=== PATIENT | female | born 1960 | race Caucasian/White ===

== ENCOUNTER → 2016-12-30 | Outpatient (CLI) | payer BC ==
[~2016-12-30] MED LIST: ANTIVERT/2525 M1 PO; ASPIR 8181 MG PO; GOOD SENSE ALLE10 MG PO; OMEPRAZOLE40 MG PO; OXYBUTYNIN CHLOR5 MG PO; ZOFRAN ODT4 MG SL
[2016-12-30 09:12] LABS: EST GLOM FILT AFRICAN AMERICAN > 60 ml/min
== END ==
LOC: LAB 08:46 → CT 09:00
PROVIDERS: Nurse Practitioner Family
DX: R59.1 Generalized enlarged lymph nodes (principal)

== ENCOUNTER → 2017-01-13 | Outpatient (CLI) | payer BC | LOC: US 13:46 | DX: E04.2 Nontoxic multinodular goiter (principal) ==

== ENCOUNTER → 2017-01-27 | Outpatient (CLI) | payer BC ==
[2017-01-27 13:06] LABS: INTERNATIONAL NORM RATIO 0.9 (2.0-3.5)
== END | disposition home or self-care (01) ==
PROVIDERS: Nurse Practitioner Family
DX: E04.2 Nontoxic multinodular goiter (principal); L04.9 Acute lymphadenitis, unspecified; R79.1 Abnormal coagulation profile

== ENCOUNTER → 2017-04-25 | Outpatient (CLI) | payer BC | END | disposition home or self-care (01) | LOC: RAD 18:44 | DX: S90.31XA Contusion of right foot, initial encounter (principal); M19.071 Primary osteoarthritis, right ankle and foot; M77.31 Calcaneal spur, right foot; X58.XXXA Exposure to other specified factors, initial encounter; Y93.89 Activity, other specified; Y92.89 Other specified places as the place of occurrence of the external cause; Y99.8 Other external cause status ==

== ENCOUNTER 2017-09-23 15:45 | Inpatient (IN) | payer BC ==
[~2017-09-23] VITALS: Ht 162.5 cm; Wt 84.2 kg
[2017-09-23 15:45] VITALS: BP 136/65
[2017-09-23 16:24] LABS: BASO % 0.1 % (0.0-1.0); EOS # 0.1 10*3/uL (0.0-0.4); EOS % 0.7 % (1.0-4.0); HEMOGLOBIN 12.8 g/dl (12.0-16.0); LYMPH # 1.6 10*3/uL (1.3-4.4); LYMPH % 23.7 % (27.0-41.0); MEAN CELL VOLUME 69.8 fl (81.0-99.0); MEAN CORPUSCULAR HGB 22.9 pg (27.0-31.0); MEAN CORPUSCULAR HGB CONC 32.8 g/dl (33.0-37.0); MEAN PLATELET VOLUME 9.5 fl (9.6-12.3); MONO # 0.3 10*3/uL (0.1-1.0); MONO % 4.7 % (3.0-9.0); NEUT # 4.8 10*3/uL (2.3-7.9); NEUT % 70.4 % (47.0-73.0); PLATELET COUNT AUTOMATED 230 10*3/uL (130-400); RED BLOOD COUNT 5.59 10*6/uL (4.10-5.10); RED CELL DISTRI WIDTH 14.4 % (0-14.5); WHITE BLOOD COUNT 6.9 10*3/uL (4.8-10.8)
[2017-09-23 16:30] VITALS: BP 128/78
[2017-09-23 16:38] LABS: ALBUMIN 3.5 gm/dl (3.1-4.5); ALKALINE PHOSPHATASE 56 U/L (45-117); BUN 10 mg/dl (7-24); CHLORIDE 97 mmol/L (98-107); CREATININE 0.73 mg/dL (0.55-1.02); SGOT/AST 30 IU/L (3-35); SGPT/ALT 40 U/L (12-78); SODIUM 137 mmol/L (136-145); TOTAL PROTEIN 7.1 gm/dL (6.4-8.2)
[2017-09-23 16:39] LABS: POTASSIUM 2.2 mmol/L (3.5-5.1)
[2017-09-23 17:59] VITALS: BP 119/60
[2017-09-23 18:45] VITALS: BP 119/60
[2017-09-23 19:13] LABS: BUN 10 mg/dl (7-24); CHLORIDE 102 mmol/L (98-107); CREATININE 0.67 mg/dL (0.55-1.02); POTASSIUM 2.7 mmol/L (3.5-5.1); SODIUM 139 mmol/L (136-145); TROPONIN I 0.028 ng/ml (<0.045)
[2017-09-23 20:00] VITALS: BP 126/68
[2017-09-23 22:31] LABS: BUN 9 mg/dl (7-24); CHLORIDE 108 mmol/L (98-107); CREATININE 0.71 mg/dL (0.55-1.02); POTASSIUM 3.2 mmol/L (3.5-5.1); SODIUM 142 mmol/L (136-145); TROPONIN I 0.028 ng/ml (<0.045)
[2017-09-24] VITALS: BP 131/59
[2017-09-24 07:02] LABS: LYMPH # 0.5 10*3/uL (1.3-4.4); LYMPH % 11.7 % (27.0-41.0); MEAN CELL VOLUME 70.2 fl (81.0-99.0); MEAN CORPUSCULAR HGB 22.6 pg (27.0-31.0); MEAN CORPUSCULAR HGB CONC 32.1 g/dl (33.0-37.0); MEAN PLATELET VOLUME 9.7 fl (9.6-12.3); MONO # 0.2 10*3/uL (0.1-1.0); MONO % 3.4 % (3.0-9.0); NEUT # 3.8 10*3/uL (2.3-7.9); NEUT % 84.2 % (47.0-73.0); PLATELET COUNT AUTOMATED 185 10*3/uL (130-400); RED CELL DISTRI WIDTH 14.4 % (0-14.5); WHITE BLOOD COUNT 4.5 10*3/uL (4.8-10.8)
[2017-09-24 07:14] LABS: HEMOGLOBIN 10.6 g/dl (12.0-16.0)
[2017-09-24 07:37] LABS: CHLORIDE 110 mmol/L (98-107); POTASSIUM 3.3 mmol/L (3.5-5.1); SODIUM 144 mmol/L (136-145)
[2017-09-24 07:38] LABS: ACT PARTIAL THROMBO TIME 25.1 SECONDS (20.8-31.5)
[2017-09-24 07:56] LABS: ALBUMIN 2.8 gm/dl (3.1-4.5); ALKALINE PHOSPHATASE 52 U/L (45-117); BUN 8 mg/dl (7-24); CHOLESTEROL 100 mg/dL (<200); CREATININE 0.66 mg/dL (0.55-1.02); HDL CHOLESTEROL 31 mg/dl (40-60); LDL CHOLESTEROL 55 mg/dL (9-159); SGOT/AST 25 IU/L (3-35); SGPT/ALT 36 U/L (12-78); THYROID STIM HORMONE (HS) 0.579 uIU/ml (0.358-4.75); TOTAL PROTEIN 6.2 gm/dL (6.4-8.2); TRIGLYCERIDES 69 mg/dl (<150); VLDL CHOLESTEROL 14 mg/dL (6-40)
[2017-09-24 08:00] VITALS: BP 136/72
[2017-09-24 08:50] LABS: VITAMIN D, 25-HYDROXY 18.9 ng/mL (30-100)
[2017-09-24 12:00] VITALS: BP 130/69
[2017-09-24 16:00] VITALS: BP 146/72
[2017-09-24 20:00] VITALS: BP 126/73
[2017-09-25] VITALS: BP 131/74
[2017-09-25 06:21] LABS: BASO % 0.1 % (0.0-1.0); HEMATOCRIT 32.3 % (37.0-47.0); HEMOGLOBIN 10.4 g/dl (12.0-16.0); LYMPH # 1.5 10*3/uL (1.3-4.4); MEAN CORPUSCULAR HGB 22.9 pg (27.0-31.0); MEAN CORPUSCULAR HGB CONC 32.2 g/dl (33.0-37.0); MONO # 0.7 10*3/uL (0.1-1.0); MONO % 7.1 % (3.0-9.0); NEUT # 7.1 10*3/uL (2.3-7.9); NEUT % 76.2 % (47.0-73.0); PLATELET COUNT AUTOMATED 225 10*3/uL (130-400); RED BLOOD COUNT 4.55 10*6/uL (4.10-5.10); RED CELL DISTRI WIDTH 14.7 % (0-14.5); WHITE BLOOD COUNT 9.4 10*3/uL (4.8-10.8)
[2017-09-25 06:53] LABS: BUN 11 mg/dl (7-24); CHLORIDE 106 mmol/L (98-107); SODIUM 142 mmol/L (136-145)
[2017-09-25 06:54] LABS: CREATININE 0.65 mg/dL (0.55-1.02); PHOSPHOROUS 3.1 mg/dL (2.5-4.9)
[2017-09-25 08:00] VITALS: BP 132/81
[2017-09-25 16:00] VITALS: BP 125/78
[2017-09-25 20:00] VITALS: BP 140/83
[2017-09-26] VITALS: BP 127/84
[2017-09-26 07:12] LABS: EOS % 0.1 % (1.0-4.0); HEMATOCRIT 34.8 % (37.0-47.0); HEMOGLOBIN 11.2 g/dl (12.0-16.0); LYMPH # 1.3 10*3/uL (1.3-4.4); LYMPH % 16.6 % (27.0-41.0); MEAN CELL VOLUME 70.3 fl (81.0-99.0); MEAN CORPUSCULAR HGB 22.6 pg (27.0-31.0); MEAN CORPUSCULAR HGB CONC 32.2 g/dl (33.0-37.0); MEAN PLATELET VOLUME 9.3 fl (9.6-12.3); MONO # 0.4 10*3/uL (0.1-1.0); MONO % 5.6 % (3.0-9.0); NEUT % 76.9 % (47.0-73.0); RED BLOOD COUNT 4.95 10*6/uL (4.10-5.10); RED CELL DISTRI WIDTH 14.6 % (0-14.5); WHITE BLOOD COUNT 7.8 10*3/uL (4.8-10.8)
[2017-09-26 07:17] LABS: BUN 15 mg/dl (7-24); CHLORIDE 104 mmol/L (98-107); CREATININE 0.58 mg/dL (0.55-1.02); PLATELET COUNT AUTOMATED 302 10*3/uL (130-400); POTASSIUM 3.7 mmol/L (3.5-5.1); SODIUM 140 mmol/L (136-145)
[2017-09-26 08:00] VITALS: BP 130/82
[2017-09-26] MEDS ORDERED: TAMIFLU 75MG CA75 MG PO (11:38)
[2017-09-26] MEDS ORDERED: PROAIR HFA8.5 GM INH (11:38)
[2017-09-26] MEDS ORDERED: LEVOFLOXACIN500 MG PO (11:38)
[2017-09-26] MEDS ORDERED: PREDNISONE10 MG PO (11:38)
== END 2017-09-26 12:42 | disposition home or self-care (01) | DRG 871 ==
LOC: ED 15:45 → 4E 17:41 → EDHOLD 17:41 → 4E 18:23
PROVIDERS: Family Medicine; Internal Medicine; Nurse Practitioner Family
DX: A41.9 Sepsis, unspecified organism (principal); J18.9 Pneumonia, unspecified organism; J98.11 Atelectasis; R65.20 Severe sepsis without septic shock; E87.6 Hypokalemia; N39.3 Stress incontinence (female) (male); R73.9 Hyperglycemia, unspecified; D72.810 Lymphocytopenia; M79.7 Fibromyalgia; M19.90 Unspecified osteoarthritis, unspecified site; K21.9 Gastro-esophageal reflux disease without esophagitis; F41.9 Anxiety disorder, unspecified; G51.0 Bell's palsy; R73.03 Prediabetes; Z91.018 Allergy to other foods; Z83.3 Family history of diabetes mellitus; Z82.49 Family history of ischemic heart disease and other diseases of the circulatory system; Z87.891 Personal history of nicotine dependence; Z98.51 Tubal ligation status; Z79.899 Other long term (current) drug therapy

== ENCOUNTER → 2017-10-13 | Outpatient (CLI) | payer BC ==
[~2017-10-13] MED LIST changes: +LEVOFLOXACIN500 MG PO; +PREDNISONE10 MG PO; +PROAIR HFA8.5 GM INH; +TAMIFLU 75MG CA75 MG PO
== END | disposition home or self-care (01) ==
LOC: RAD 08:12
DX: J18.9 Pneumonia, unspecified organism (principal); Z87.891 Personal history of nicotine dependence

== ENCOUNTER → 2017-12-29 | Outpatient (CLI) | payer BC | END | disposition home or self-care (01) | LOC: RAD 14:27 | DX: M19.041 Primary osteoarthritis, right hand (principal); R05 Cough; J18.9 Pneumonia, unspecified organism ==

== ENCOUNTER → 2018-01-04 | Outpatient (CLI) | payer BC | END | disposition home or self-care (01) | LOC: US 00:29 | DX: E04.1 Nontoxic single thyroid nodule (principal) ==

== ENCOUNTER → 2018-02-21 | Outpatient (CLI) | payer BC | END | disposition home or self-care (01) | LOC: RAD 19:20 | DX: J15.9 Unspecified bacterial pneumonia (principal); R53.83 Other fatigue ==

== ENCOUNTER → 2018-03-06 | Outpatient (CLI) | payer BC ==
--- NOTE | ~2018-03-06 | PF ---
[place], [place] PULMONARY FUNCTION TEST NAME: MELQUIADES PALOMO UNIT #: [id number] ROOM: DOCTOR: EVERARDO CASILLAS MD,SHERYL BIRTHDATE: [birth year] DOS: 03/06/2018 PULMONARY FUNCTION TEST ORDERED BY: LASHAE Alcala. HISTORY: The patient is a 57-year-old outpatient, female, height of 64 inches, weight of 190 pounds, BMI 32.6. Study was done for assessment of symptoms of chronic cough with symptoms of dyspnea with exertion. Tobacco use noted 3 packs of cigarettes per day for 23 years. SPIROMETRY: The FVC was recorded 3.10 liters, 94% predicted value normal. FEV1 2.70 liters, 0.3% predicted value normal. The ratio of FEV1/FVC recorded 80% that was normal. Flow volume loop was suggestive of mild obstructive airway pattern, otherwise normal. LUNG VOLUME: Thoracic gas volume recorded at 78%, residual volume 69%, total lung capacity 87%. Lung volume noted normal. The patient's airway resistance and passive conductance normal. Lung diffusion noted essentially in the low normal range is 77%. FINAL IMPRESSION: Normal pulmonary function tests were noted except mild obstructive pattern noted in the flow volume loop. At this time, significance unknown. SHERYL MCGEE MD CM:PFREPORT:PULMONARY FUNCTION TEST [id number] SHERYL CASILLAS MD
== END | disposition home or self-care (01) ==
LOC: CP 15:35
DX: R05 Cough (principal)

== ENCOUNTER → 2018-12-12 | Outpatient (CLI) | payer SELFPAY | END | disposition home or self-care (01) | LOC: RESCLI 01:56 | DX: K21.9 Gastro-esophageal reflux disease without esophagitis (principal); N39.3 Stress incontinence (female) (male); F32.9 Major depressive disorder, single episode, unspecified; M79.7 Fibromyalgia; J40 Bronchitis, not specified as acute or chronic; J06.9 Acute upper respiratory infection, unspecified; R00.0 Tachycardia, unspecified; Z79.899 Other long term (current) drug therapy; Z88.8 Allergy status to other drugs, medicaments and biological substances ==